=== PATIENT | female | born 1980 | race Caucasian/White ===

== ENCOUNTER 2024-11-24 12:31 | Outpatient (CLI) | payer OTHER, SELFPAY ==
--- NOTE | ~2024-11-24 | XR_ITS ---
EXAMINATION: XR thoracic spine 3V, XR lumbar spine 2-3V DATE: 11/24/2024 13:22 INDICATION: Mid and low back pain TECHNIQUE: 1. AP and lateral views of the thoracic spine were obtained. 2. AP, lateral and coned-down lateral lumbosacral views of the lumbar spine were obtained. COMPARISON: CT abdomen pelvis dated 01/11/2019 FINDINGS: Thoracic spine: Partially visualized plate and screw fixation for lower cervical anterior spinal fusion. 8 degrees thoracic dextrocurvature. Sagittal alignment is normal. Vertebral body heights are normal. There is moderate disc height loss at T3-T4 through T9-T10 with mild disc height loss at T2-T3, T10-T11 and T11-T12. Visualized portion of the lungs are clear with no pleural effusion or pneumothorax. Cardiomediastinal silhouette is normal. Lumbar spine: Alignment is normal. Vertebral body heights are normal. Disc heights are normal. Sacrum and bilateral sacroiliac joints are normal. Multiple surgical clips in the pelvis. IMPRESSION: 1. Moderate thoracic spondylosis. Lumbar spine is unremarkable. Reviewed, dictated and finalized at location A. IMPRESSION: 1. Moderate thoracic spondylosis. Lumbar spine is unremarkable.
--- NOTE | ~2024-11-24 | XR_ITS ---
XR_CERV2-3V_CR Indication: NECK PAIN, LOW BACK PAIN, MID BACK PAIN Comparison: None Findings: Grade 1 retrolisthesis of C4-C5, no fracture identified. Anterior fixation of C5-C6, the hardware is intact. Minimal loss of the remaining disc heights. Soft tissues unremarkable Impression: No acute abnormality. Reviewed, dictated and finalized at location A. Impression: No acute abnormality.
--- NOTE | ~2024-11-24 | XR_ITS ---
EXAMINATION: XR chest 2V 11/24/2024 13:21 INDICATION: Shortness of breath PROCEDURE: 2 view chest COMPARISON: No prior studies for comparison. FINDINGS: The lungs are clear. The cardiomediastinal silhouette is within normal limits. There are no pleural effusions. There is no pneumothorax suspected. IMPRESSION: 1: NO ACUTE CARDIOPULMONARY DISEASE. Reviewed, dictated and finalized at location O.
--- OUTSIDE RECORDS SUMMARY | 2024-11-24 12:40 | XMS_ITS | Encounter Summary ---
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
--- OUTSIDE RECORDS SUMMARY | 2024-11-24 12:40 | XMS_ITS | Encounter Summary ---
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
--- OUTSIDE RECORDS SUMMARY | 2024-11-24 12:40 | XMS_ITS | Clinical Summary ---
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 Gender Identity Not on file Sexual Orientation Not on file Plan of Treatment Health Maintenance Due Date Last Done Comments Cervical Cancer Screening Pa p Smear (Age 30 to 64) Every 3 Years 1978 Colorectal Cancer Screening Colonoscopy (10 Years) 1978 Annual Physical 1981 Hepatitis C 1996 DTaP, Tdap and Td Vaccines ( 1 - Tdap) 1997 Hepatitis B Vaccines (1 of 3 - 19+ 3-dose series) 1997 Cervical Cancer Screening Pa p with HPV Testing (Age 30 to 64) Every 5 Years 2008 Cervical Cancer Screening with HPV 2008 Mammogram Screening 2018 COVID-19 Vaccine (2023-2 5 season) 2023 Meningococcal B Vaccine Aged Out No l onger eligible based on patient's age to complete this topic Meningococcal Vaccine Aged Out No mindi dulce eligible based on patient's age to complete this topic Pneumococcal Vaccine: Pediat rics (0 to 5 Years) and At-Risk Patients (6 to 49 Years) Aged Out No longer eligible b ased on patient's age to complete this topic RSV Immunizations Under 20 Months Aged Out No longer eligible based on patient's age to complete this topic Insurance [facility] Care Teams Stevedoring Superintendent Relationship Specialty Start Date End Date Nasim Lreoy MD [address] [place] [phone] PCP - General FAMILY PRACTICE 01/10/19
--- NOTE | 2024-11-24 12:43 | ECG_ITS ---
Test Date: 2024-11-24 13:22:28 Measurements Intervals [place] Rate: 58 P: 70 [place]: 159 QRS: 67 QRSD: 78 T: 75 QT: 393 QTc: 387 Interpretive Statements SINUS BRADYCARDIA POSSIBLE LEFT ATRIAL ENLARGEMENT POSSIBLE RIGHT VENTRICULAR CONDUCTION DELAY BASELINE ARTIFACT- I, II, III, AVR, AVL, AVF, V1-V6 BORDERLINE ECG No previous ECG available for comparison Electronically Signed On 11-24-2024 14:23:45 CDT by Isiah Mattson D.O.
== END 2024-11-24 12:32 | disposition home or self-care (01) ==
LOC: CHSIMG 12:38
PROVIDERS: PCP Family Medicine; Visit Provider Physician Assistant
DX: R06.02 Shortness of breath (principal); M54.2 Cervicalgia; M54.50 Low back pain, unspecified; M54.9 Dorsalgia, unspecified; R00.1 Bradycardia, unspecified; M43.04 Spondylolysis, thoracic region
CPT/HCPCS: 71046; 72040; 72072; 72100; 93005

== ENCOUNTER 2024-12-15 16:32 | Outpatient (RCR) | payer OTHER, SELFPAY ==
--- NOTE | 2024-12-15 17:57 | OPREHPOC ---
Outpatient Therapy Plan of Care This is a Multidisciplinary Plan of Care that may contain components documented by all disciplines (PT, OT, and ST.) PT Problem 1 PT Problem #1 Knowledge Deficit PT Goal 1 Goal / Goal Update The patient will be independent in a home exercise program. Target Visit 2 PT Problem 2 PT Problem #2 Pain PT Goal 1 Goal / Goal Update The patient will report no greater than 3/10 neck pain with job tasks. The patient will report no greater than 2/10 low back pain with prolonged sitting, standing, or walking of 20+ minutes. Target Visit 10 PT Problem 3 PT Problem #3 Impaired Functional Mobility PT Goal 1 Goal / Goal Update The patient will demonstrate 30% or less self perceived disability per the Back Index questionnaire. The patient will demonstrate the ability to lift 40# from waist to shoulder with good body mechanics and minimal low back pain to mimic patient transfers. Target Visit 10 PT Problem 4 PT Problem #4 Impaired Range of Motion PT Goal 1 Goal / Goal Update The patient will demonstrate at least 50 degrees cervical rotation AROM to improve safety with driving. Target Visit 10 PT Problem 5 PT Problem #5 Impaired Strength PT Goal 1 Goal / Goal Update The patient will demonstrate 5/5 left hip flexion strength. Target Visit 10
--- NOTE | 2024-12-15 17:58 | PTOPEVAL1 ---
Assessment and note entered by Mary Elena, PT Evaluation Information Assessment Status Evaluation Diagnosis Back Pain Other ICD-10 Condition Codes ( M54.9 PT) Onset 12/08/24 Subjective Information Kim Ashraf reports she had a C5-6 fusion in 2012 and has had pain since then but the pain worsened a few weeks ago for unknown reasons. She had been on vacation and was on jet skis and boats . She also has pain in her lower back and she has tingling in the left knee on the back that goes down to her small toes. She has also occasional burning on the outer side of the ankle as well. She is unable to sit, stand, walk, or be in one position for more than 10 minutes. She went to the doctor and had x-rays ordered. She reports her doctor thinks she has a nerve impingement. She reports they wanted to fuse C6-7 at the same time as her previous fusion but the insurance company denied it. Her doctor wants to get a MRI but she has to have PT first. She takes pain medication as soon as she gets home from work. 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 She is having to ask for help with patient lifts occasionally. Reported Pain Level Pain Score 7,10: Self Report Assessment PT Clinical Summary Kim Ashraf presents with chronic neck pain and more recent lumbar pain with radiculopathy into the left LE. She has a history of C5-6 fusion in 2012. She has difficulty with any position or activity for 10+ minutes. She objectively demonstrates decreased and guarded cervical AROM, decreased bilateral shoulder strength, decreased lumbar AROM, decreased core and left hip strength, and positive special tests indicating lumbar nerve root irritation. She will benefit from skilled PT to address these limitations. Plan of Care Interventions Electrical Stimulation,Hot Pack/Cold Pack,Manual Therapy,Mechanical Traction,Neuro Re-education, Patient/Caregiver Education,Therapeutic Activities ,Therapeutic Exercise,Self-Care/Home Management, Ultrasound PT Services Indicated Yes Treatment Frequency and 2 times a week for 10 visits Duration These treatments will address the objective and functional deficits as defined above. The patient will be advanced safely and appropriately in order for the patient to progress towards his/her prior level of function. Additional exercises will be introduced and as well as a comprehensive home exercise program upon discharge, if needed, ?to ensure carryover of functional gains achieved in the clinic. This treatment plan has been reviewed and agreement upon by the patient.
--- NOTE | 2025-01-05 14:23 | OPREHPOC ---
Outpatient Therapy Plan of Care This is a Multidisciplinary Plan of Care that may contain components documented by all disciplines (PT, OT, and ST.) PT Problem 1 PT Problem #1 Knowledge Deficit PT Goal 1 Goal / Goal Update The patient will be independent in a home exercise program. Target Visit 2 Progress Met PT Problem 2 PT Problem #2 Pain PT Goal 1 Goal / Goal Update The patient will report no greater than 3/10 neck pain with job tasks. The patient will report no greater than 2/10 low back pain with prolonged sitting, standing, or walking of 20+ minutes. Target Visit 10 Progress Not Met PT Problem 3 PT Problem #3 Impaired Functional Mobility PT Goal 1 Goal / Goal Update The patient will demonstrate 30% or less self perceived disability per the Back Index questionnaire. The patient will demonstrate the ability to lift 40# from waist to shoulder with good body mechanics and minimal low back pain to mimic patient transfers. Target Visit 10 Progress Not Met PT Problem 4 PT Problem #4 Impaired Range of Motion PT Goal 1 Goal / Goal Update The patient will demonstrate at least 50 degrees cervical rotation AROM to improve safety with driving. Target Visit 10 Progress Not Met PT Problem 5 PT Problem #5 Impaired Strength PT Goal 1 Goal / Goal Update The patient will demonstrate 5/5 left hip flexion strength. Target Visit 10 Progress Not Met
--- NOTE | 2025-01-05 14:23 | PTOPPROG ---
Assessment and note entered by Mary Elena, PT Evaluation Information Assessment Status Progress Diagnosis Back Pain Other ICD-10 Condition Codes ( M54.9 PT) Onset 12/08/24 Subjective Information Kim Ashraf reports she has not worked since 12/27/24 after she saw her physician for a follow up and he recommended she take some time off work. She continues to have neck and back pain with radiation to her left LE. She reports she is noting improved motion in her neck and shoulder since starting PT. She feels her lower back pain is worse though. 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 She notes she sits to get dressed and to fold clothes and she is letting her and son cover the other load dispatcher local. She and her doctor are trying to get a MRI approved to further evaluate her lumbar spine. She does have a MRI approved and scheduled for her cervical spine on 01/12/25. Assessment PT Clinical Summary Kim Ashraf has completed 7 skilled PT visits for chronic neck pain and more recent lumbar pain with radiculopathy into the left LE. She is reporting a little more mobility in her neck after PT sessions however, she has worse lower back pain and left LE pain. 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 She objectively demonstrates worse self perceived disability per the Back Index questionnaire and subjective reports. She has been slow to progress due to pain levels and guarding. She objectively demonstrates decreased and guarded cervical AROM, decreased bilateral shoulder strength, decreased lumbar AROM, decreased core and left hip strength, and positive special tests indicating lumbar nerve root irritation. She has had a regression in lumbar lateral flexion and extension AROM as well as cervical rotation bilaterally. No changes noted in strength at this time. She will continue to benefit from skilled PT until her next MD follow up on 01/17/25. Plan of Care Interventions Electrical Stimulation,Hot Pack/Cold Pack,Manual Therapy,Mechanical Traction,Neuro Re-education, Patient/Caregiver Education,Therapeutic Activities ,Therapeutic Exercise,Self-Care/Home Management, Ultrasound PT Services Indicated Yes Treatment Frequency and Continue POC for 3 additional visits to total 10 Duration These treatments will address the objective and functional deficits as defined above. The patient will be advanced safely and appropriately in order for the patient to progress towards his/her prior level of function. Additional exercises will be introduced and as well as a comprehensive home exercise program upon discharge, if needed, ?to ensure carryover of functional gains achieved in the clinic. This treatment plan has been reviewed and agreement upon by the patient.
--- NOTE | 2025-01-18 17:52 | PTOPDC ---
Assessment and note entered by Mary Elena, PT Evaluation Information Assessment Status Discharge Diagnosis Back Pain Other ICD-10 Condition Codes ( M54.9 PT) Onset 12/08/24 Subjective Information Kim Ashraf reports she saw her neurologist on 01/17/25 and received the results of her cervical MRI that showed retrolithesis at C4-5 as well as osteoarthritis. She also got results of her thoracic and lumbar x-rays and it showed narrowing and osteoarthritis in the thoracic spine . The lumbar spine x-ray was unremarkable. He doctor is still trying to get her lumbar MRI approved. He wanted to send her to pain management but she did not want to have injections and her neurologist will be managing her pain medication. She is going to go on temporary disability for work. She reports she has not had a significant change in her pain or symptoms since she started PT. She would like to discontinue PT until she knows more of what is going on in her lower spine and what the ultimate treatment plan will be. Reported Pain Level Pain Score 10,10: Self Report Assessment PT Clinical Summary Kim Ashraf has completed 10 skilled PT visits for chronic neck pain and more recent lumbar pain with radiculopathy into the left LE. She is reporting no overall change in her spine symptoms since initiating PT. She has been started on new pain medication and will be going on disability from work. She continues to demonstrate severely decreased cervical and lumbar AROM, guarded posture, a right weight shift in standing, and decreased tolerance to daily activities. She has not met PT goals except independence in a HEP to continue after discharge. She will be discharged from formal PT. Plan of Care PT Services Indicated No
== END 2025-01-18 20:00 | disposition home or self-care (01) ==
LOC: CHSPT 16:32
PROVIDERS: PCP Physician Assistant; Visit Provider Physician Assistant
DX: M54.9 Dorsalgia, unspecified (principal)
CPT/HCPCS: 97014; 97110; 97140; 97161; 97750; G0283

== ENCOUNTER 2024-12-21 10:33 | Outpatient (CLI) | payer OTHER, SELFPAY ==
--- NOTE | 2025-01-13 13:39 | P.PCNPFT_ITS ---
PFT Procedure Performed PFT Procedure Performed Spirometry with Pre/Post Bronchodilator Plethysmography (Lung Vol) Diffusing Cap (DLCO) Flow Vol Loop PFT Interpretation DOS: 12/21/2024 REQUESTING: Chantell Phelps MD REASON FOR TESTING: shortness of breath PULMONARY FUNCTION TESTS Results are reliable and reproducible. Repeatability of spirometry FEV1 maneuver pre and post bronchodilator is Grade A. Angelica Cotton Dust reference equations were used. Spirometry: The pre-bronchodilator FEV1 is 1.95 L, 71%, decreased. The pre- bronchodilator FVC is 2 point 8 6 L, 85%, normal. The FEV1/FVC ratio is 68%. After bronchodilator, the FEV1 is 1.67 L, 61%, -14%. The post-bronchodilator FVC is 2.23 L, 66%, -22%. The FEV1/FVC ratio is 75%. Lung volumes: The total lung capacity is 4.63 L, 87%, normal. The functional residual capacity is 3.27 L, 107%, normal. The residual volume is 1.77 L, 96%, normal. The RV/TLC is 38%, normal. Airway resistance is increased. Diffusion: DLCO is 13.2, 62%, mildly decreased. The DLCO/VA is 4.34, 105%, normal. Flow volume loop: The flow volume loop shows mild coving of the expiratory limb. IMPRESSION: This study shows a mild obstructive ventilatory impairment without improvement after bronchodilator administration, normal lung volumes, and a mild diffusion impairment which corrects for alveolar volume. There are no prior studies to compare. Devika Allison MD
== END 2024-12-21 10:34 | disposition home or self-care (01) ==
LOC: CHSCARD 10:37
PROVIDERS: PCP Family Medicine; Visit Provider Physician Assistant
DX: R06.02 Shortness of breath (principal); R94.2 Abnormal results of pulmonary function studies
CPT/HCPCS: 94060; 94726; 94729

== ENCOUNTER 2025-01-12 14:41 | Outpatient (CLI) | payer OTHER, SELFPAY ==
--- NOTE | ~2025-01-12 | MR_ITS ---
EXAMINATION: MR cervical spine wo con DATE: 01/12/2025 16:54 INDICATION: Cervical radiculopathy. TECHNIQUE: Magnetic resonance imaging (MRI) of the cervical spine was performed without intravenous contrast. Sequences included sagittal T2-weighted FSE, sagittal T2-weighted FS FSE, sagittal T1-weighted FSE, axial MERGE, and axial T2-weighted FSE. COMPARISON: Cervical spine radiographs 11/24/2024 FINDINGS: There is 2 mm retrolisthesis of C4 on C5. The changes of anterior fusion procedure at C5-C6 with healed interbody bone graft and anterior plate and screws. Vertebral body heights are normal. There is mildly decreased disc height at C3-C4, moderately decreased disc height at C4-C5, and mildly decreased disc height at C6-C7. The spinal cord signal intensity is normal. The following disc levels are specifically discussed: C2-C3: There is a central protrusion. There is no uncovertebral joint osteoarthritis. There is no facet joint osteoarthritis. There is no neural foraminal stenosis. There is mild central canal stenosis. C3-C4: There is a central extrusion. There is mild bilateral uncovertebral joint osteoarthritis. There is mild bilateral facet joint osteoarthritis. There is mild left neural foraminal stenosis. There is mild central canal stenosis. C4-C5: There is a central extrusion. There is severe bilateral uncovertebral joint osteoarthritis. There is moderate bilateral facet joint osteoarthritis. There is mild right and moderate left neural foraminal stenosis. There is moderate central canal stenosis with ventral and dorsal indentation of the spinal cord. C5-C6: There is mild bilateral uncovertebral joint hypertrophy. There is no facet joint osteoarthritis. There is no neural foraminal stenosis. There is no central canal stenosis. C6-C7: There is a central extrusion. There is moderate bilateral uncovertebral joint osteoarthritis. There is mild bilateral facet joint osteoarthritis. There is moderate right and mild left neural foraminal stenosis. There is moderate central canal stenosis with ventral and dorsal indentation of the spinal cord. C7-T1: The disc does not extend beyond the endplate margin. There is no uncovertebral joint osteoarthritis. There is severe bilateral facet joint osteoarthritis. There is mild right neural foraminal stenosis. There is no central canal stenosis. IMPRESSION: 1. Moderate cervical spondylosis. 2. Anterior fusion procedure at C5-C6. Reviewed, dictated and finalized at location E.
== END 2025-01-12 14:42 | disposition home or self-care (01) ==
LOC: CHSIMG 14:42
PROVIDERS: PCP Physician Assistant; Visit Provider Physician Assistant
DX: M54.12 Radiculopathy, cervical region (principal); M43.12 Spondylolisthesis, cervical region; Z98.1 Arthrodesis status
CPT/HCPCS: 72141

== ENCOUNTER 2025-03-25 09:10 | Outpatient (CLI) | payer OTHER, SELFPAY ==
--- NOTE | ~2025-03-25 | MR_ITS ---
EXAMINATION: MR thoracic spine wo con DATE: 03/25/2025 10:07 INDICATION: Chronic upper back pain. TECHNIQUE: Magnetic resonance imaging (MRI) of the thoracic spine was performed without intravenous contrast. COMPARISON: Thoracic spine radiographs 11/24/2024 FINDINGS: There is 5 degrees dextrocurvature of thoracic spine. Vertebral body heights are normal. There is mildly decreased disc height from T3-T4 through T9- T10. There is multilevel mild facet joint osteoarthritis. At T3-T4, there is a central protrusion with mild central canal stenosis. At T6-T7, there is a central protrusion with mild central canal stenosis. There is mild right neural foraminal stenosis at T11-T12. The spinal cord signal intensity is normal. The conus medullaris is at L1-L2. IMPRESSION: 1. Mild thoracic spondylosis. Reviewed, dictated and finalized at location E. IFIED LOW VISION THERAPIST
--- NOTE | ~2025-03-25 | MR_ITS ---
EXAMINATION: MR lumbar spine wo con DATE: 03/25/2025 10:07 INDICATION: Chronic low back pain. TECHNIQUE: Magnetic resonance imaging (MRI) of the lumbar spine was performed without intravenous contrast. COMPARISON: Lumbar spine radiographs 11/24/24 FINDINGS: Alignment is normal. There is mild chronic anterior wedging of T12 vertebral body. Intervertebral disc heights are normal. The distal spinal cord signal intensity is normal. The conus medullaris is at L1-L2. The following disc levels are specifically discussed: L1-L2: The disc does not extend beyond the endplate margin. There is mild bilateral facet joint osteoarthritis. There is no neural foraminal stenosis. There is no central canal stenosis. L2-L3: The disc does not extend beyond the endplate margin. There is mild bilateral facet joint osteoarthritis. There is no neural foraminal stenosis. There is no central canal stenosis. L3-L4: The disc is mildly bulging. There is mild bilateral facet joint osteoarthritis. There is mild left neural foraminal stenosis. There is mild central canal stenosis. L4-L5: The disc does not extend beyond the endplate margin. There is mild bilateral facet joint osteoarthritis. There is no neural foraminal stenosis. There is no central canal stenosis. L5-S1: There is a central protrusion. There is mild bilateral facet joint osteoarthritis. There is no neural foraminal stenosis. There is mild central canal stenosis. IMPRESSION: 1. Mild lumbar spondylosis. Reviewed, dictated and finalized at location E. LEVEL PRACTITIONER IMPRESSION: 1. Mild lumbar spondylosis.
== END 2025-03-25 09:11 | disposition home or self-care (01) ==
PROVIDERS: PCP Family Medicine; Visit Provider Physician Assistant
DX: M54.50 Low back pain, unspecified (principal); M54.6 Pain in thoracic spine; M43.04 Spondylolysis, thoracic region; M43.06 Spondylolysis, lumbar region
CPT/HCPCS: 72146; 72148